=== PATIENT | female | born 1995 | race Caucasian/White ===

== ENCOUNTER 2019-06-06 01:51 | Emergency (ER) | payer MEDICAID, OTHER ==
[~2019-06-06] VITALS: Ht 144.8 cm; Wt 39.5 kg
[2019-06-06 01:55] VITALS: BP 100/82
== END 2019-06-06 02:23 | disposition left against medical advice (07) ==
LOC: ER 01:52
DX: R10.9 Unspecified abdominal pain (principal); Z53.21 Procedure and treatment not carried out due to patient leaving prior to being seen by health care provider